=== PATIENT | female | born 1975 | race Caucasian/White ===

== ENCOUNTER 2017-07-15 05:06 | Emergency (ER) | payer MEDICARE, OTHER ==
[~2017-07-15] VITALS: Ht 154.9 cm; Wt 56.2 kg
[2017-07-15] MEDS ORDERED: PRILOSEC20 M1 PO (05:12)
[2017-07-15] MEDS ORDERED: ADV 500/50 INH (05:12)
[2017-07-15] MEDS ORDERED: SPIRIVA18 MCG PO (05:13)
[2017-07-15] MEDS ORDERED: PREDNISONE10 MG PO (05:13)
[2017-07-15] MEDS ORDERED: SINGULAIR10 M1 PO (05:13)
[2017-07-15] MEDS ORDERED: VICODIN 5-3001 EACH PO (05:14)
[2017-07-15] MEDS ORDERED: SEPTDS PO (05:14)
[2017-07-15] MEDS ORDERED: ADDERALL 10 MG10 MG PO (05:16)
[2017-07-15] MEDS ORDERED: XANAX0.5 MG PO ×2 (05:17→05:41)
== END 2017-07-15 05:57 | disposition home or self-care (01) ==
LOC: ED 05:06
DX: F41.8 Other specified anxiety disorders (principal); F43.0 Acute stress reaction; Z88.6 Allergy status to analgesic agent; Z79.899 Other long term (current) drug therapy

== ENCOUNTER → 2017-08-24 | Outpatient (CLI) | payer MEDICARE, OTHER ==
[~2017-08-24] MED LIST: ADDERALL 10 MG10 MG PO; ADV 500/50 INH; PREDNISONE10 MG PO; PRILOSEC20 M1 PO; SEPTDS PO; SINGULAIR10 M1 PO; SPIRIVA18 MCG PO; VICODIN 5-3001 EACH PO; XANAX0.5 MG PO
[2017-08-24 10:51] LABS: BASO # 0.1 10*3/uL (0.0-0.1); BASO % 0.6 % (0.0-1.0); EOS # 0.1 10*3/uL (0.0-0.4); HEMATOCRIT 41.2 % (37.0-47.0); HEMOGLOBIN 12.9 g/dl (12.0-16.0); LYMPH # 3.1 10*3/uL (1.3-4.4); LYMPH % 23.7 % (27.0-41.0); MEAN CELL VOLUME 83.2 fl (81.0-99.0); MEAN CORPUSCULAR HGB 26.1 pg (27.0-31.0); MEAN CORPUSCULAR HGB CONC 31.3 g/dl (33.0-37.0); MEAN PLATELET VOLUME 9.3 fl (9.6-12.3); MONO # 0.9 10*3/uL (0.1-1.0); MONO % 7.1 % (3.0-9.0); NEUT # 8.7 10*3/uL (2.3-7.9); NEUT % 66.9 % (47.0-73.0); PLATELET COUNT AUTOMATED 550 10*3/uL (130-400); RED BLOOD COUNT 4.95 10*6/uL (4.10-5.10); RED CELL DISTRI WIDTH 18.9 % (0-14.5)
[2017-08-24 11:17] LABS: ALBUMIN 3.7 gm/dl (3.1-4.5); ALKALINE PHOSPHATASE 115 U/L (45-117); BUN 5 mg/dl (7-24); CHLORIDE 106 mmol/L (98-107); CREATININE 0.73 mg/dL (0.55-1.02); POTASSIUM 3.5 mmol/L (3.5-5.1); SGOT/AST 16 IU/L (3-35); SGPT/ALT 16 U/L (12-78); SODIUM 141 mmol/L (136-145); TOTAL PROTEIN 7.2 gm/dL (6.4-8.2)
[2017-08-25 06:11] LABS: HIV 1+2 AB + HIV1 P24 AG Non Reactive (Non Reactive)
[2017-08-25 08:23] LABS: ALPHA-1-ANTITRYPSIN, SERUM 158 mg/dL (90-200); RHEUMATOID ARTHRITIS FACTOR <10.0 IU/mL (0.0-13.9)
[2017-08-25 15:08] LABS: ATYPICAL PANCA <1:20 titer (Neg:<1:20); CYTOPLASMIC (C-ANCA) <1:20 titer (Neg:<1:20)
[2017-08-26 15:08] LABS: ANTIMYELOPEROXIDASE (MPO) ABS <9.0 U/mL (0.0-9.0)
== END | disposition home or self-care (01) ==
LOC: LAB 09:54
DX: J84.9 Interstitial pulmonary disease, unspecified (principal); J45.50 Severe persistent asthma, uncomplicated

== ENCOUNTER 2017-09-10 09:21 | Emergency (ER) | payer MEDICARE, OTHER ==
[~2017-09-10] VITALS: Ht 154.9 cm; Wt 56.7 kg
== END 2017-09-10 09:40 | disposition home or self-care (01) ==
LOC: ED 09:21
DX: F41.9 Anxiety disorder, unspecified (principal); J45.909 Unspecified asthma, uncomplicated; Z79.899 Other long term (current) drug therapy; Z88.6 Allergy status to analgesic agent

== ENCOUNTER 2017-10-20 19:56 | Emergency (ER) | payer MEDICARE, OTHER ==
[~2017-10-20] VITALS: Ht 154.9 cm; Wt 54.4 kg
[2017-10-20] MEDS ORDERED: CEPHALEXIN500 M1 PO (20:04)
== END 2017-10-20 20:15 | disposition home or self-care (01) ==
LOC: ED 19:56
DX: H66.92 Otitis media, unspecified, left ear (principal); Z79.899 Other long term (current) drug therapy; Z88.6 Allergy status to analgesic agent